=== PATIENT | male | born 1980 | race Caucasian/White ===

== ENCOUNTER 2016-08-12 20:40 | Emergency (ER) | payer OTHER ==
[~2016-08-12] VITALS: Ht 180.3 cm; Wt 79.4 kg
[2016-08-12 20:49] VITALS: BP 119/79
--- NOTE | 2016-08-12 20:55 | NUR ---
TO ER BED 8
--- NOTE | 2016-08-12 21:13 | NUR ---
36 Y/O HERE W/C/O MEDIAL ABD PAIN,DIARRHEA,NAUSEA AND VOMITTING X 2 HRS AGO. DENIES ANY CHEST PAIN, OR R LOWER QUADRANT PAIN. NO S/S OF DISTRESS NOTED AT THE MOMENT, VSS. ER MD AWARED.
[2016-08-12] MEDS ORDERED: ONDANSETRON 4 MG ODT PO ONE (21:35)
[2016-08-12] MEDS ORDERED: KETOROLAC 60 MG/2 ML VIAL IM ONE (21:35)
[2016-08-12 22:15] VITALS: BP 116/70
--- NOTE | 2016-08-12 22:15 | NUR ---
Patient discharged with v/s stable. Written and verbal after care instructions given and explained. Patient alert, oriented and verbalized understanding of instructions. Ambulatory with steady gait. All questions addressed prior to discharge. ID band removed. Patient advised to follow up with PMD OR RETURN TO ER IF CONDITION WORSENS. Rx of MOTRIN, AND ZOFRAN given. Patient educated on indication of medication including possible reaction and side effects. Opportunity to ask questions provided and answered.
== END 2016-08-12 22:15 | disposition home or self-care (01) ==
LOC: MED 20:40
DX: T62.91XA Toxic effect of unspecified noxious substance eaten as food, accidental (unintentional), initial encounter (principal); R11.2 Nausea with vomiting, unspecified; R10.84 Generalized abdominal pain; R42 Dizziness and giddiness; R03.0 Elevated blood-pressure reading, without diagnosis of hypertension; Y92.89 Other specified places as the place of occurrence of the external cause
CPT/HCPCS: 74022; 96372; 99283; J1885; S0119

== ENCOUNTER 2017-08-06 16:53 | Emergency (ER) | payer SELFPAY ==
[~2017-08-06] VITALS: Ht 180.3 cm; Wt 86.2 kg
[2017-08-06 16:57] VITALS: BP 110/63
[2017-08-06] MEDS ORDERED: IBUPROFEN 400 MG TAB ONE (17:03)
[2017-08-06] MEDS ORDERED: ACETAMINOPHEN EXTRA STRENGTH 500 MG TAB ONE (17:03)
--- NOTE | 2017-08-06 17:20 | NUR ---
PATIENT PRESENTS TO ED WITH FEVER HEADACHE X 4 DAYS . PT STATES . DENIES N/V/D; SKIN IS PINK/WARM/DRY; AAOX4 WITH EVEN AND STEADY GAIT; LUNGS CLEAR BL; HR EVEN AND REGULAR; PATIENT STATES PAIN OF 10/10 AT THIS TIME; VSS;ER MD MADE AWARE OF PT STATUS.
--- NOTE | 2017-08-06 18:29 | NUR ---
INFLUENZA SWAB COLLECTED AND HANDED TO LEADER TIER
[2017-08-06 20:08] VITALS: BP 107/98
--- NOTE | 2017-08-06 20:08 | NUR ---
Patient discharged with v/s stable. Written and verbal after care instructions given and explained. Patient alert, oriented and verbalized understanding of instructions. Ambulatory with steady gait. All questions addressed prior to discharge. ID band removed. Patient advised to follow up with PMD. Rx of TAMIFLU given. Patient educated on indication of medication including possible reaction and side effects. Opportunity to ask questions provided and answered.
== END 2017-08-06 20:08 | disposition home or self-care (01) ==
LOC: MED 16:53
DX: J11.1 Influenza due to unidentified influenza virus with other respiratory manifestations (principal); F17.210 Nicotine dependence, cigarettes, uncomplicated
CPT/HCPCS: 36415; 87804; 99284

== ENCOUNTER 2018-07-08 19:55 | Emergency (ER) | payer MEDICAID, OTHER ==
[~2018-07-08] VITALS: Ht 180.3 cm; Wt 83.9 kg
--- NOTE | 2018-07-08 20:09 | NUR ---
TO ER BED 6
[2018-07-08 20:10] VITALS: BP 130/76
--- NOTE | 2018-07-08 20:22 | NUR ---
PT C/O FLU-LIKE SYMPTOMS. WAS SEEN AT [facility] MONDAY GIVEN RX OF TAMIFLU AND LIQUID DECONGESTANT. PT REPORTS HEAD PAIN 10/10 ACHING, COUGH, FEVER. PATIENT HAS CLEAR BREATH SOUNDS BILAT, NO EVIDENCE OF LABORED BREATHING. DENIES CP/SOB AT THIS TIME. PMH---ORBITAL FX, RECONSTRUCTIVE SURGERY, L ARM BROKEN NKA
[2018-07-08] MEDS ORDERED: KETOROLAC 30 MG/ML VIAL IM ONE (20:40)
[2018-07-08 20:53] VITALS: BP 130/72
== END 2018-07-08 20:53 | disposition home or self-care (01) ==
LOC: MED 19:55
DX: B34.9 Viral infection, unspecified (principal); F17.210 Nicotine dependence, cigarettes, uncomplicated
CPT/HCPCS: 36415; 87804; 96372; 99283; J1885

== ENCOUNTER 2018-08-19 13:00 | Emergency (ER) | payer OTHER ==
[~2018-08-19] VITALS: Ht 180.3 cm; Wt 84.4 kg
[2018-08-19 13:06] VITALS: BP 148/73
--- NOTE | 2018-08-19 13:11 | NUR ---
PATIENT AMBULATED TO ER BED 1.
--- NOTE | 2018-08-19 13:17 | NUR ---
PT IS A 38 Y/O MALE WHO PRESENTS TO THE ED C/O LOW BACK PAIN. PT STATES THAT IT HAS BEEN GOING ON X2 DAYS, STATES THAT PAIN IS PRIMARILY ON THE R FLANK WITH RADIATION TO THE BACK, REPORTS 7/10 ACHING PAIN. PT DENIES CP, SOB, N/V/D. PT AWAKE AND ALERT, RR EVEN/UNLABORED. PT REPOSITIONED FOR COMFORT, BED IN LOWEST POSITION. ER MD DR. WHITLOCK NOTIFIED. WILL CONTINUE TO MONITOR. RX: DENIES HX: DENIES
--- NOTE | 2018-08-19 14:23 | NUR ---
Patient discharged with v/s stable. Written and verbal after care instructions given and explained. Patient verbalized understanding. Ambulatory with steady gait. All questions addressed prior to discharge. Advised to follow up with PMD.
[2018-08-19 14:24] VITALS: BP 135/72
== END 2018-08-19 14:23 | disposition home or self-care (01) ==
LOC: MED 13:00
DX: N23 Unspecified renal colic (principal)
CPT/HCPCS: 81002; 99283

== ENCOUNTER 2020-06-27 06:34 | Emergency (ER) | payer OTHER, SELFPAY ==
[~2020-06-27] VITALS: Ht 182.9 cm; Wt 81.6 kg
[2020-06-27 06:40] VITALS: BP 152/90
--- NOTE | 2020-06-27 06:40 | NUR ---
TO BED # 04 AMBULATORY
--- NOTE | 2020-06-27 06:58 | NUR ---
39 Y/O MALE C/O COUGH AND WHEEZING FOR 2 MONTHS. MOIST PRODUCTIVE COUGH PRESENT. ALSO C/O LEFT SHOULDER PAIN FOR 2 YEARS,S/P WORKING, CARRYING HEAVY OBJECTS. PT STATES 7/10 PAIN. RX: ROBITUSSIN MEDHX: MARISELA BUTLER
--- NOTE | 2020-06-27 07:03 | NUR ---
XRAY AT BEDSIDE
--- NOTE | 2020-06-27 07:13 | NUR ---
REPORT GIVEN TO J CARLOS GRAHAM FOR CONTINUITY OF CARE
--- NOTE | 2020-06-27 07:14 | NUR ---
Report from SANTOS Levy
--- NOTE | 2020-06-27 07:28 | NUR ---
First contact with pt. C/o 7/10 Left shoulder pain for 3 years and cough and congestion for 2 months. Curernt vs are stable. Pt rates pain at 7/10 burning type of pain. Awaiting results for disposition.
[2020-06-27 07:42] VITALS: BP 124/85
--- NOTE | 2020-06-27 07:44 | NUR ---
Pt given dc instructions and rx. stated understanding of followup plan. ambulated er with steady gate. No sos of distress.
== END 2020-06-27 07:42 | disposition home or self-care (01) ==
LOC: MED 06:34
DX: R05 Cough (principal); M25.512 Pain in left shoulder; R07.9 Chest pain, unspecified
CPT/HCPCS: 71045; 73030; 99284

== ENCOUNTER 2021-05-29 02:02 | Emergency (ER) | payer OTHER, SELFPAY ==
[~2021-05-29] VITALS: Ht 182.9 cm; Wt 85.3 kg
[2021-05-29 02:04] VITALS: BP 130/74
[2021-05-29 05:07] VITALS: BP 130/74
== END 2021-05-29 05:07 | disposition home or self-care (01) ==
LOC: MED 02:02
DX: U07.1 COVID-19 (principal)
CPT/HCPCS: 71045; 87426; 99284; U0003

== ENCOUNTER 2022-04-05 00:14 | Emergency (ER) | payer OTHER ==
[~2022-04-05] VITALS: Ht 180.3 cm; Wt 69.9 kg
[2022-04-05] MEDS ORDERED: HYDROcodone/APAP 5/325 MG 1 TAB TAB PO ONE (01:05)
[2022-04-05 01:35] VITALS: BP 136/84
[2022-04-05 01:48] VITALS: BP 136/84
--- NOTE | 2022-04-05 01:48 | NUR ---
Patient discharged with v/s stable. Written and verbal after care instructions given and explained. Patient verbalized understanding. Ambulatory with steady gait. All questions addressed prior to discharge. Advised to follow up with PMD. DX: LACERATION, HEAD PATIENT ADVISED TO RETURN TO ED IN 7 DAYS FOR REMOVAL OF LUIGI, PATIENT VERBALIZED UNDERSTANDING
== END 2022-04-05 01:48 | disposition home or self-care (01) ==
LOC: MED 00:14
DX: S01.01XA Laceration without foreign body of scalp, initial encounter (principal); W22.8XXA Striking against or struck by other objects, initial encounter; Y93.89 Activity, other specified; Y92.89 Other specified places as the place of occurrence of the external cause; Y99.8 Other external cause status
CPT/HCPCS: 90471; 90715; 99283

== ENCOUNTER 2022-04-15 17:35 | Emergency (ER) | payer OTHER ==
[~2022-04-15] VITALS: Ht 172.7 cm; Wt 65.8 kg
[2022-04-15 17:44] VITALS: BP 121/80
[2022-04-15 18:15] VITALS: BP 138/85
== END 2022-04-15 18:15 | disposition home or self-care (01) ==
LOC: MED 17:35
DX: S01.01XD Laceration without foreign body of scalp, subsequent encounter (principal); X58.XXXD Exposure to other specified factors, subsequent encounter
CPT/HCPCS: 99281

== ENCOUNTER 2022-08-20 13:30 | Emergency (ER) | payer MEDICAID, OTHER ==
[~2022-08-20] VITALS: Ht 182.9 cm; Wt 76.7 kg
[2022-08-20 13:31] VITALS: BP 117/69
--- NOTE | 2022-08-20 13:37 | NUR ---
PT AMB TO BED 11.
[2022-08-20] MEDS ORDERED: TETRACAINE HCL/PF 0.5% OPTH 4 ML BTL OP ONE (13:50)
[2022-08-20] MEDS ORDERED: FLUORESCEIN OPTH STRIP 1 MG OP ONE (13:50)
[2022-08-20] MEDS ORDERED: OFLO5SOL27 LEFT EYE (14:39)
[2022-08-20 14:49] VITALS: BP 132/76
== END 2022-08-20 14:48 | disposition home or self-care (01) ==
LOC: MED 13:30
DX: H16.002 Unspecified corneal ulcer, left eye (principal); Z79.899 Other long term (current) drug therapy
CPT/HCPCS: 99283

== ENCOUNTER 2023-05-28 09:18 | Emergency (ER) | payer MEDICAID ==
[~2023-05-28] VITALS: Ht 182.9 cm; Wt 81.6 kg
[~2023-05-28 09:18] MED LIST: OFLO5SOL27 LEFT EYE
[2023-05-28 09:30] VITALS: BP 137/82; PULSE 77; RESP 14; TEMP 97.6; O2SAT 100
[2023-05-28] MEDS ORDERED: IBUPROFEN 600 MG TAB PO ONE (10:40)
[2023-05-28] MEDS ORDERED: ACET-10509 PO (12:14)
[2023-05-28] MEDS ORDERED: CEPH-588 PO (12:14)
[2023-05-28] MEDS ORDERED: IBUP-2213 PO (12:14)
== END 2023-05-28 12:30 | disposition home or self-care (01) ==
LOC: MED 09:18
DX: L84 Corns and callosities (principal); Z79.899 Other long term (current) drug therapy; Z79.1 Long term (current) use of non-steroidal anti-inflammatories (NSAID); Z79.2 Long term (current) use of antibiotics
CPT/HCPCS: 73140; 99283

== ENCOUNTER 2023-07-03 03:19 | Emergency (ER) | payer MEDICAID ==
[~2023-07-03] VITALS: Ht 182.9 cm; Wt 78.5 kg
[~2023-07-03 03:19] MED LIST changes: +ACET-10509 PO; +CEPH-588 PO; +IBUP-2213 PO
[2023-07-03 03:25] VITALS: BP 129/88; PULSE 91; RESP 18; TEMP 97.8; O2SAT 98
[2023-07-03] MEDS ORDERED: MORPHINE SULFATE 4 MG/ML SYR IM ONE (03:40)
[2023-07-03] MEDS ORDERED: NAPR-54 PO (05:02)
[2023-07-03 05:18] VITALS: BP 129/88; PULSE 91; RESP 18; TEMP 97.8; O2SAT 98
== END 2023-07-03 05:18 | disposition home or self-care (01) ==
LOC: MED 03:19
DX: S42.401A Unspecified fracture of lower end of right humerus, initial encounter for closed fracture (principal); F17.210 Nicotine dependence, cigarettes, uncomplicated; F12.90 Cannabis use, unspecified, uncomplicated; Z79.899 Other long term (current) drug therapy; Z79.1 Long term (current) use of non-steroidal anti-inflammatories (NSAID); Z79.2 Long term (current) use of antibiotics; V23.49XA Other motorcycle driver injured in collision with car, pick-up truck or van in traffic accident, initial encounter; Y93.89 Activity, other specified; Y92.410 Unspecified street and highway as the place of occurrence of the external cause; Y99.8 Other external cause status
CPT/HCPCS: 29105; 73080; 96372; 99283; J2270; Q0092